=== PATIENT | male | born 1985 | race Caucasian/White ===

== ENCOUNTER 2020-03-02 12:46 | Outpatient (CLI) | payer OTHER ==
--- NOTE | 2020-03-02 14:38 | MRI Report ---
PROCEDURE: Lumbar Spine W/O INDICATIONS: PAIN IN THORACIC, DORSALGIA TECHNIQUE: Noncontrast sagittal T1 spin echo and T2 fast echo, sagittal STIR, axial T1 and T2 fast spin echo thr ough the lumbar spine. In cases with scoliosis, additional coronal T2 fast spin echo may be performe d. COMPARISON: None. FINDINGS: Image quality: Excellent. Alignment and Curvature: No plain films are available for comparison. Thus, for numbering purposes, 5 lumbar type vertebral bodies will be presumed for the current report. This should be confirmed with plain film correlation prior to any lumbar spinal intervention. There is loss of normal lumbar lordo sis. Bone Marrow: Marrow is of normal overall signal. No acute vertebral body compression fractures. Spinal Cord: Conus medullaris terminates at the upper L1 level. Visualized cord demonstrates normal signal and size. Paraspinous Soft Tissues: No paravertebral masses. T12-L1: Normal in appearance. L1-L2: Minimal disc desiccation. No significant canal, nor foraminal stenosis. L2-L3: Normal in appearance. L3-L4: Mild facet hypertrophy. No significant canal, nor foraminal stenosis. L4-L5: Mild facet and ligament flavum hypertrophy. Mild epidural lipomatosis. No significant canal, nor foraminal stenosis. L5-S1: Mild bilateral facet hypertrophy. No significant canal, nor foraminal stenosis. IMPRESSION: 1. Multilevel mild degenerative disc and facet disease, in addition to epidural lipomatosis and ligam entum flavum hypertrophy, causing no significant canal, nor foraminal stenosis. 2. Five lumbar type vertebral bodies were presumed for the purposes of the current report. Correlati on with plainfilms for numbering purposes is recommended prior to any lumbar spinal intervention. Reviewed by: Malaika Mccrary MD on 03/02/2020 2:36 PM PDT Approved by: Malaika Mccrary MD on 03/02/2020 2:36 PM PDT Station ID: [id number]
--- NOTE | 2020-03-02 17:01 | MRI Report ---
PROCEDURE: Thoracic Spine W/O INDICATIONS: (Right side of thoracic spine and rib pain. TECHNIQUE: Noncontrast sagittal T1 spine echo and T2 fast spin echo, sagittal STIR, axial T1 and T2 fast spin ec ho through the thoracic spine. COMPARISON: None. FINDINGS: Image quality: Excellent. Alignment and Curvature: There is normal bony alignment. Bone Marrow: Small, benign intraosseous hemangioma noted in the T12 vertebral body. Marrow is of oth erwise normal overall signal. No acute vertebral body compression fractures. Spinal Cord: Visualized spinal cord is normal in size and signal. Paraspinous Soft Tissues: No paravertebral masses. Miscellaneous: Loss of signal noted in the T3-T4 disc. Loss of signal and height noted at T4-T5 disc . On axial images, central canal and foramina appear widely patent at all scanned levels. IMPRESSION: 1. Moderate T4-T5 degenerative disc disease. Mild T3-T4 degenerative disc disease. 2. No central stenosis. 3. No neural foraminal narrowing. 4. No neural compression. 5. No vertebral body compression fracture. Reviewed by: Radha Colorado MD, PhD on 03/02/2020 5:00 PM PDT Approved by: Radha Colorado MD, PhD on 03/02/2020 5:00 PM PDT Station ID: [id number]
== END 2020-03-02 12:47 | disposition home or self-care (01) ==
LOC: DI 12:46
PROVIDERS: ATTEND Family Medicine
DX: M51.34 Other intervertebral disc degeneration, thoracic region (principal); M51.36 Other intervertebral disc degeneration, lumbar region; M47.816 Spondylosis without myelopathy or radiculopathy, lumbar region; M47.817 Spondylosis without myelopathy or radiculopathy, lumbosacral region; E88.2 Lipomatosis, not elsewhere classified
CPT/HCPCS: 72146; 72148